=== PATIENT | male | born 1940 | race Caucasian/White ===

== ENCOUNTER 2017-01-16 08:16 | Inpatient (IN) | payer MEDICARE ==
[~2017-01-16] VITALS: Ht 177.8 cm; Wt 90.9 kg
[~2017-01-16 08:16] MED LIST: ALBUTEROL S2.5 MG/.5 IN; ALEVE220 M1 PO; ANCEF IJ; ASPIRIN325 MG PO; CIPROFLOXACN500 MG PO; DONEPEZIL10 MG PO; DUONEB IN; LAMICTAL25 M2 PO; LEVAQUIN750 MG PO; LIPITOR20 MG PO; LOPRESSOR25 MG PO; LOPRESSOR50 M1 PO; LORTAB 7.57.5 MG PO; MEMANTINE HCL10 MG PO; MULTIVITAMI1 PO; MULTIVITAMI9 PO; NITROSTAT0.4 MG PO; NORVASC OR; NORVASC2.5 MG PO; PREDNISONE10 MG PO; PROBIOTIC1 TAB PO; TERAZOSIN5 MG PO
[2017-01-16 08:52] LABS: HEMATOCRIT 44.6 % (39.0-50.0); HEMOGLOBIN 14.8 g/dl (14.0-18.0); IMMATURE GRANULOCYTES 0.3 % (0.0-1.0); MEAN CELL VOLUME 98.7 fL CALC (80.0-100.0); MEAN CORPUSCULAR HGB 32.7 pG CALC (26.0-32.0); MEAN CORPUSCULAR HGB CONC 33.2 g/L CALC (32.0-36.0); NEUT# 5.33 thou/uL (1.82-7.42); RED BLOOD COUNT 4.52 mill/uL (4.70-6.10); RED CELL DISTRI WIDTH 13.8 % (11.5-15.5)
[2017-01-16 09:04] LABS: ALBUMIN 4.2 g/dL (3.2-5.0); ALKALINE PHOSPHATASE 114 u/l (38-126); ANION GAP 15 (6-22 (CALC)); BILIRUBIN, TOTAL 0.8 mg/dL (0.0-1.4); BUN 14 mg/dL (8-23); BUN/CREATININE RATIO 15 (12-20 (CALC)); CALCIUM 9.4 mg/dL (8.4-10.2); CARBON DIOXIDE 29 mmol/l (22-30); CHLORIDE 103 mmol/l (95-108); CREATININE 0.9 mg/dL (0.7-1.3); GFR > 60 ML/MIN (>=60 (CALC)); GFR FOR AFR.AMER. > 60 ML/MIN (>=60 (CALC)); GLUCOSE 98 mg/dL (82-115); POTASSIUM 4.1 mmol/l (3.5-5.1); SGOT/AST 28 u/l (19-48); SGPT/ALT 25 u/l (11-66); SODIUM 143 mmol/l (137-146); TOTAL PROTEIN 7.6 g/dL (6.3-8.2)
[2017-01-16 09:15] LABS: MYOGLOBIN 102 ng/mL (0 - 121)
[2017-01-16 13:30] VITALS: BP 182/94
[2017-01-16 16:00] VITALS: BP 180/85
[2017-01-16 20:15] VITALS: BP 170/94
[2017-01-17 02:18] VITALS: BP 160/98
[2017-01-17 05:40] VITALS: BP 162/80
[2017-01-17 05:56] LABS: HEMATOCRIT 47.9 % (39.0-50.0); IMMATURE GRANULOCYTES 1.1 % (0.0-1.0); MEAN CELL VOLUME 97.8 fL CALC (80.0-100.0); MEAN CORPUSCULAR HGB 32.7 pG CALC (26.0-32.0); MEAN CORPUSCULAR HGB CONC 33.4 g/L CALC (32.0-36.0); NEUT# 8.61 thou/uL (1.82-7.42); RED BLOOD COUNT 4.9 mill/uL (4.70-6.10); RED CELL DISTRI WIDTH 13.6 % (11.5-15.5)
[2017-01-17 06:14] LABS: ANION GAP 15 (6-22 (CALC)); BUN 18 mg/dL (8-23); BUN/CREATININE RATIO 22 (12-20 (CALC)); CALCIUM 9.7 mg/dL (8.4-10.2); CARBON DIOXIDE 27 mmol/l (22-30); CHLORIDE 103 mmol/l (95-108); CREATININE 0.8 mg/dL (0.7-1.3); GFR > 60 ML/MIN (>=60 (CALC)); GFR FOR AFR.AMER. > 60 ML/MIN (>=60 (CALC)); GLUCOSE 131 mg/dL (82-115); POTASSIUM 4.3 mmol/l (3.5-5.1); SODIUM 141 mmol/l (137-146)
[2017-01-17 08:33] VITALS: BP 143/83
[2017-01-17 12:05] VITALS: BP 141/93
[2017-01-17 16:03] VITALS: BP 150/81
[2017-01-17 21:09] VITALS: BP 141/85
[2017-01-18 00:30] VITALS: BP 158/91
[2017-01-18 04:00] VITALS: BP 152/84
[2017-01-18 06:00] LABS: HEMATOCRIT 46.5 % (39.0-50.0); HEMOGLOBIN 15.4 g/dl (14.0-18.0); IMMATURE GRANULOCYTES 0.6 % (0.0-1.0); MEAN CELL VOLUME 97.9 fL CALC (80.0-100.0); MEAN CORPUSCULAR HGB 32.4 pG CALC (26.0-32.0); MEAN CORPUSCULAR HGB CONC 33.1 g/L CALC (32.0-36.0); NEUT# 10.24 thou/uL (1.82-7.42); RED BLOOD COUNT 4.75 mill/uL (4.70-6.10)
[2017-01-18 06:12] LABS: ANION GAP 14 (6-22 (CALC)); BUN 27 mg/dL (8-23); BUN/CREATININE RATIO 28 (12-20 (CALC)); CALCIUM 9.5 mg/dL (8.4-10.2); CARBON DIOXIDE 28 mmol/l (22-30); CHLORIDE 104 mmol/l (95-108); GFR > 60 ML/MIN (>=60 (CALC)); GFR FOR AFR.AMER. > 60 ML/MIN (>=60 (CALC)); GLUCOSE 120 mg/dL (82-115); POTASSIUM 4.4 mmol/l (3.5-5.1); SODIUM 141 mmol/l (137-146)
[2017-01-18 08:21] VITALS: BP 167/88
[2017-01-18 09:05] VITALS: BP 167/88
[2017-01-18] MEDS ORDERED: PREDNISONE10 MG PO (12:34)
[2017-01-18] MEDS ORDERED: ADLT ASA LOW81 MG PO (12:34)
[2017-01-18] MEDS ORDERED: LEVAQUIN750 MG PO (12:34)
== END 2017-01-18 13:20 | disposition home or self-care (01) | DRG 190 ==
LOC: ENPENDDIS → ED 08:16 → ED-I 10:03 → ED 10:21 → MS2 10:22
PROVIDERS: Emergency Medicine; ADMIT Internal Medicine; ATTEND Internal Medicine
DX: J44.0 Chronic obstructive pulmonary disease with (acute) lower respiratory infection (principal); J96.21 Acute and chronic respiratory failure with hypoxia; J18.9 Pneumonia, unspecified organism; J96.22 Acute and chronic respiratory failure with hypercapnia; Z99.81 Dependence on supplemental oxygen; J44.1 Chronic obstructive pulmonary disease with (acute) exacerbation; I10 Essential (primary) hypertension; I25.2 Old myocardial infarction; F17.210 Nicotine dependence, cigarettes, uncomplicated; I25.10 Atherosclerotic heart disease of native coronary artery without angina pectoris; E78.5 Hyperlipidemia, unspecified; Z86.711 Personal history of pulmonary embolism; Z95.5 Presence of coronary angioplasty implant and graft; Z87.01 Personal history of pneumonia (recurrent)
CPT/HCPCS: J1650

== ENCOUNTER 2017-10-06 15:41 | Observation (INO) | payer MEDICARE ==
[~2017-10-06] VITALS: Ht 177.8 cm; Wt 89.8 kg
[~2017-10-06 15:41] MED LIST changes: +ADLT ASA LOW81 MG PO
--- NOTE | 2017-10-06 15:41 | NUR ---
TO ROOM 10. AT SIDE
[2017-10-06 16:09] LABS: HEMATOCRIT 41.9 % (39.0-50.0); HEMOGLOBIN 13.9 g/dl (14.0-18.0); IMMATURE GRANULOCYTES 0.2 % (0.0-1.0); MEAN CELL VOLUME 97.9 fL CALC (80.0-100.0); MEAN CORPUSCULAR HGB 32.5 pG CALC (26.0-32.0); MEAN CORPUSCULAR HGB CONC 33.2 g/L CALC (32.0-36.0); NEUT# 5.9 thou/uL (1.82-7.42); RED BLOOD COUNT 4.28 mill/uL (4.70-6.10); RED CELL DISTRI WIDTH 13.3 % (11.5-15.5)
[2017-10-06 16:29] LABS: ANION GAP 15 (6-22 (CALC)); BUN 15 mg/dL (8-23); BUN/CREATININE RATIO 15 (12-20 (CALC)); CARBON DIOXIDE 29 mmol/l (22-30); CHLORIDE 107 mmol/l (95-108); GFR > 60 ML/MIN (>=60 (CALC)); GFR FOR AFR.AMER. > 60 ML/MIN (>=60 (CALC)); POTASSIUM 4.2 mmol/l (3.5-5.1); SODIUM 147 mmol/l (137-146)
--- NOTE | 2017-10-06 16:30 | NUR ---
PT ADVISED OF WAIT TIME FOR LAB RESULTS. NO C/O PAIN. VSS. CALL LIGHT WITHIN REACH.
--- NOTE | 2017-10-06 17:35 | NUR ---
PT MAEW. REPOSITIONS SELF. OCCASIONAL COUGH, VSS. IV SITE HEALTHY. SKIN WARM AND DRY. RA RESP EVEN AND UNLABORED. NO C/O PAIN.
[2017-10-06 17:52] LABS: INFLUENZA A NONE DETECTED (NONE DETECT); INFLUENZA B NONE DETECTED (NONE DETECT)
--- NOTE | 2017-10-06 18:30 | NUR ---
PT PLACED ON TELEMETRY. AWARE OF ADMIT TO ROOM 290
--- NOTE | 2017-10-06 19:03 | NUR ---
REPORT PROVIDED TO RADHA ABARCA. PT TO [facility] ON TELEMETRY, IV SITE HEALTHY. NO C/O PAIN SINCE ARRIVAL. VSS.
[2017-10-06 19:10] VITALS: BP 186/95
--- NOTE | 2017-10-06 20:00 | NUR ---
1912-FROM ER TO [facility] VIA STRETCHER, LABORATORY VETERINARIAN, ON ROOM AIR, ACOMPANIED BY SHYLA POE RN. PT AMBULATED TO BED WITH STEADY GAIT NOTED, DENIES PAIN AT THIS TIME, RESP ARE EVEN AND UNLABORED, WILL CHECK VSS, DENIES USING ASSISTIVE AMBULATORY DEVICES AT HOME. NOTED SOME FACIAL GRIMACE, ASKED PT AGAIN "DO YOU HAVE ANY CHEST PAIN OR DISCOMFORT." PT DENIES AT THIS TIME. 1999-PT BP ELEVATED, C/O CHEST PAIN, [id number], DENIES N/V, PLACE ON 2LPM O2 VIA NC, FLUSHED FACE NOTED. 2009-RT IN ROOM FOR EKG 2014-ADMINISTRATED SUBLINGUAL NITROGLYCERIN, FIRST DOSE. 2019-CONTINUE HAVING CHEST PAIN, SUBLINGUAL NITROGLYCERIN GIVEN, SECOND DOSE. 2024-CONTINUES HAVING CHEST PAIN, THIRD DOSE OF SUBLINGUAL NITROGLYCERIN GIVEN. 2029-COCOA ROASTER IN PT ROOM DRAWING TROPONIN. PT RATES CHEST PAIN AT 1/10, STATES IS ALMOST GONE. WILL NOTIFY DR. WEI. PT RESP ARE EVEN AND UNLABORED, NO DISTRESS NOTED AT THIS TIME, VSS, AFEBRILE, REMAINS AT BEDSIDE.
[2017-10-06 20:10] VITALS: BP 190/100
--- NOTE | 2017-10-06 21:20 | NUR ---
DR. WEI NOTIFIED ABOUT PT STATUS, EKG, TROPONIN RESULTS, MEDS GIVEN. WAITING FOR MORPHINE AND NITRO PATCH TO BE PROFILE BY PHARMACY, PT VSS, AFEBRILE, ON 2LPM NC, NO DISTRESS NOTED RESP ARE EVEN AND UNLABORED, RATES CHEST PAIN AT 1/10. WILL MONITOR CLOSELY. INTERMITTENT PRODUCTIVE COUGH W/SOME GREEN TENACIOUS SPUTUM NOTED.
--- NOTE | 2017-10-06 22:18 | NUR ---
ADMINISTERED A NITRO OINTMENT PATCH AT THIS TIME, PT RATES CHEST PAIN AT 1/10, NO DISTRESS NOTED, ON 2LPM VIA NC, RESP ARE EVEN AND UNLABORED, VSS AT THIS TIME, AT BEDSIDE, WILL MONITOR CLOSELY.
--- NOTE | 2017-10-07 00:25 | NUR ---
PT RESTING IN BED WITH EYES CLOSED, PT IS HARD TO HEAR, AROUSES WITH PHYSICAL STIMULI, DENIES CHEST PAIN AT THIS TIME, NO DISTRES NOTED AT THIS TIME ON 2LPM VIA NC, AT BEDSIDE, VSS, AFEBRILE, WILL CONTINUE TO MONITOR, CALL DELGADO IS AT REACH.
[2017-10-07 01:12] VITALS: BP 117/74
--- NOTE | 2017-10-07 01:54 | NUR ---
NOTIFIED DR. WEI ABOUT MIDNIGHT TROP RESULTS AND PT C/O CHEST PAIN, RATES IT AT 1/10, NO DISTRESS NOTED, RESP ARE EVEN AND UNLABORED ON 2LPM VIA NC, VSS, WILL CONTINUE TO MONITOR CLOSELY.
--- NOTE | 2017-10-07 03:31 | NUR ---
PT CONTINUE RATING CHEST PAIN AT /, STATES "IT COMES AND GOES, IT IS ONLY ON LEFT CHEST." NO DISTRESS NOTED, RESP ARE EVEN AND UNLABORED, NONDIAPHORECTIC, SOME COUGH NOTED, PT STATES "I FEEL CONGESTED." REMAINS AT BEDSIDE. FREQUENTLY ROUNDS MADE.
[2017-10-07 03:43] VITALS: BP 107/68
--- NOTE | 2017-10-07 06:32 | NUR ---
PT DENIES ANY CHEST PAIN AT THIS TIME STATES "NO CHEST PAIN NOW." AT BEDSIDE, NO S/S OF DISTRESS, RESP ARE EVEN AND UNLABORED ON ROOM AIR. ENCOURAGED TO CALL IF NEEEDED.
[2017-10-07 06:36] LABS: CHOLESTEROL HDL RATIO 3.3 (<4.4 (CALC))
--- NOTE | 2017-10-07 07:55 | NUR ---
CALLED DR. VASQUEZ'S OFFICE AND LEFT MESSAGE AT
[2017-10-07 08:25] VITALS: BP 148/85
--- NOTE | 2017-10-07 08:25 | NUR ---
AT 0715 PT C/O MIDSTERNAL CHEST PAIN AFTER TAKING IN WATER. THEN GRANDDAUGHTER CAME IN AND BROUGHT PT A SANDWICH. STATED "WHEN I ATE A FEW BITES OF SANDWICH LAST NIGHT AND THEN THIS AM THEN THE PAIN STARTS.".ASSESSMENT THEN COMPLETED: AND NO DISTRESS NOTED. STATING "ITS ALL GONE". BREATH SOUNDS ARE CLEAR,BILATERALLY, HR IS REG,PULSES ARE STRONG X4. ABD IS SOFT WITH ACTIVE BS. TELE MONITOR IN PLACE.
[2017-10-07 11:45] VITALS: BP 140/75
--- NOTE | 2017-10-07 12:14 | NUR ---
PT IS RELAXING IN BED FAMILY IN THE ROOM. IV SITE IS FREE FROM REDNESS OR EDEMA. IN TO VISIT WITH PT. CONTINUE TO OBSERVE AND MONIOTR.
[2017-10-07 14:54] VITALS: BP 140/75
--- NOTE | 2017-10-07 16:00 | NUR ---
PT IS RELAXING AND VISITING IWTH FAMILY. NO DISTRESS NOTED. IV SITE IS FREE FROM REDNESS OR EDEMA. TELE MONITOR INPLACE.
[2017-10-07] MEDS ORDERED: MEDDOSEPAK PO (17:36)
[2017-10-07] MEDS ORDERED: LOPRESSOR25 MG PO (17:36)
[2017-10-07] MEDS ORDERED: DOXYCYCL HYC100 MG PO (17:36)
--- NOTE | 2017-10-07 17:52 | NUR ---
IV SITE WILL BE REMOVED FOR DISCHARGE,. FAMILY IN THE ROOM NOW.
--- NOTE | 2017-10-07 18:14 | NUR ---
DISCHARGE INSTRUCTIONS GIVEN AND VERBALIZED UNDERSTANDING. IV SITE DISCONTINEUD CATHETER INTACT. NO REDNESS OR EDEMA. TELE MONITOR TAKEN OFF. Discharge instructions given. Patient verbalizes understanding of same. Discharged in stable condition via Wheelchair to Home with family. All belongings sent with pt.
== END 2017-10-07 18:12 | disposition home or self-care (01) ==
LOC: ED 15:41 → ED-I 17:23 → ED 17:50 → MS2 17:51
PROVIDERS: Family Medicine; ADMIT Internal Medicine; ATTEND Internal Medicine
DX: R07.89 Other chest pain (principal); J44.1 Chronic obstructive pulmonary disease with (acute) exacerbation; I25.10 Atherosclerotic heart disease of native coronary artery without angina pectoris; I10 Essential (primary) hypertension; I25.2 Old myocardial infarction; E78.5 Hyperlipidemia, unspecified; R91.1 Solitary pulmonary nodule; Z86.711 Personal history of pulmonary embolism; Z95.5 Presence of coronary angioplasty implant and graft; Z95.828 Presence of other vascular implants and grafts; Z99.81 Dependence on supplemental oxygen; Z87.11 Personal history of peptic ulcer disease; Z87.891 Personal history of nicotine dependence
CPT/HCPCS: Q9967

== ENCOUNTER 2017-11-09 11:04 | Emergency (ER) | payer MEDICARE ==
[~2017-11-09] VITALS: Ht 177.8 cm; Wt 90.0 kg
[~2017-11-09 11:04] MED LIST changes: +DOXYCYCL HYC100 MG PO; +MEDDOSEPAK PO
[2017-11-09 11:33] LABS: HEMATOCRIT 43.9 % (39.0-50.0); HEMOGLOBIN 14.5 g/dl (14.0-18.0); IMMATURE GRANULOCYTES 0.7 % (0.0-1.0); MEAN CELL VOLUME 97.3 fL CALC (80.0-100.0); MEAN CORPUSCULAR HGB 32.2 pG CALC (26.0-32.0); NEUT# 21.44 thou/uL (1.82-7.42); RED BLOOD COUNT 4.51 mill/uL (4.70-6.10)
[2017-11-09 11:54] LABS: ACT PARTIAL THROMBO TIME 30.3 SECONDS (20.0-32.5); INTERNATIONAL NORMALIZED RATIO 1.1 RATIO (0.7-1.3); PROTHROMBIN TIME 11.8 SECONDS (9.0-12.5)
[2017-11-09 11:55] LABS: ALBUMIN 3.5 g/dL (3.2-5.0); BILIRUBIN, TOTAL 0.9 mg/dL (0.0-1.4); POTASSIUM 3.7 mmol/l (3.5-5.1)
[2017-11-09 11:56] LABS: CREATININE 2.2 mg/dL (0.7-1.3)
[2017-11-09 12:45] VITALS: BP 89/53
== END 2017-11-09 12:14 | disposition short-term general hospital (02) ==
LOC: ED 11:04
PROVIDERS: Emergency Medicine
DX: I21.09 ST elevation (STEMI) myocardial infarction involving other coronary artery of anterior wall (principal); I95.9 Hypotension, unspecified; I10 Essential (primary) hypertension; I25.2 Old myocardial infarction; Z86.711 Personal history of pulmonary embolism; R06.02 Shortness of breath; R07.9 Chest pain, unspecified; F03.90 Unspecified dementia, unspecified severity, without behavioral disturbance, psychotic disturbance, mood disturbance, and anxiety

== ENCOUNTER 2017-11-21 20:53 | Emergency (ER) | payer MEDICARE ==
[~2017-11-21] VITALS: Ht 177.8 cm; Wt 90.4 kg
[2017-11-21] MEDS ORDERED: ASPIRIN81 MG PO (21:23)
[2017-11-21] MEDS ORDERED: BRILINTA90 MG PO (21:24)
[2017-11-21] MEDS ORDERED: SPIRONOLACTONE25 MG PO (21:25)
[2017-11-21] MEDS ORDERED: SPIRONOLACT25 MG PO (21:26)
[2017-11-21] MEDS ORDERED: LASIX 20 MG TAB20 MG PO (21:35)
[2017-11-21 21:37] LABS: HEMATOCRIT 39.6 % (39.0-50.0); IMMATURE GRANULOCYTES 0.5 % (0.0-1.0); MEAN CELL VOLUME 100.5 fL CALC (80.0-100.0); MEAN CORPUSCULAR HGB 31.7 pG CALC (26.0-32.0); MEAN CORPUSCULAR HGB CONC 31.6 g/L CALC (32.0-36.0); NEUT# 6.81 thou/uL (1.82-7.42); RED BLOOD COUNT 3.94 mill/uL (4.70-6.10); RED CELL DISTRI WIDTH 14.3 % (11.5-15.5)
[2017-11-21 21:39] LABS: HEMOGLOBIN 12.5 g/dl (14.0-18.0)
[2017-11-21 21:51] LABS: ALBUMIN 3.6 g/dL (3.2-5.0); BILIRUBIN, TOTAL 0.4 mg/dL (0.0-1.4); CREATININE 1.8 mg/dL (0.7-1.3); POTASSIUM 4.6 mmol/l (3.5-5.1); TOTAL PROTEIN 6.2 g/dL (6.3-8.2)
[2017-11-21 22:29] LABS: ACT PARTIAL THROMBO TIME 27.1 SECONDS (20.0-32.5); INTERNATIONAL NORMALIZED RATIO 1.1 RATIO (0.7-1.3); PROTHROMBIN TIME 11.8 SECONDS (9.0-12.5)
[2017-11-22 01:11] VITALS: BP 120/84
== END 2017-11-22 01:12 | disposition short-term general hospital (02) ==
LOC: ED 20:53
PROVIDERS: Emergency Medicine
DX: I21.4 Non-ST elevation (NSTEMI) myocardial infarction (principal); J44.0 Chronic obstructive pulmonary disease with (acute) lower respiratory infection; J18.9 Pneumonia, unspecified organism; I11.9 Hypertensive heart disease without heart failure; I25.10 Atherosclerotic heart disease of native coronary artery without angina pectoris; I25.2 Old myocardial infarction; F03.90 Unspecified dementia, unspecified severity, without behavioral disturbance, psychotic disturbance, mood disturbance, and anxiety; Z95.5 Presence of coronary angioplasty implant and graft; Z95.0 Presence of cardiac pacemaker
CPT/HCPCS: J1650

== ENCOUNTER 2017-12-02 16:47 | Inpatient (IN) | payer MEDICARE ==
[~2017-12-02] VITALS: Ht 177.8 cm; Wt 86.0 kg
[~2017-12-02 16:47] MED LIST changes: -ALBUTEROL S2.5 MG/.5 IN; +ASPIRIN81 MG PO; +BRILINTA90 MG PO; +LASIX 20 MG TAB20 MG PO; +PROAIR HFA108 MCG/AC IN; +SPIRONOLACT25 MG PO; +SPIRONOLACTONE25 MG PO
[2017-12-02 17:00] VITALS: BP 106/74
[2017-12-02 18:11] LABS: HEMATOCRIT 40.5 % (39.0-50.0); HEMOGLOBIN 12.6 g/dl (14.0-18.0); IMMATURE GRANULOCYTES 0.4 % (0.0-1.0); MEAN CORPUSCULAR HGB 31.7 pG CALC (26.0-32.0); MEAN CORPUSCULAR HGB CONC 31.1 g/L CALC (32.0-36.0); NEUT# 5.09 thou/uL (1.82-7.42); RED BLOOD COUNT 3.97 mill/uL (4.70-6.10); RED CELL DISTRI WIDTH 15.5 % (11.5-15.5)
[2017-12-02 18:30] LABS: ALBUMIN 3.5 g/dL (3.2-5.0); BILIRUBIN, TOTAL 0.6 mg/dL (0.0-1.4); CREATININE 1.4 mg/dL (0.7-1.3); POTASSIUM 4.6 mmol/l (3.5-5.1); TOTAL PROTEIN 6.4 g/dL (6.3-8.2)
[2017-12-02 19:00] VITALS: BP 115/74
[2017-12-02] MEDS ORDERED: BRILINTA90 MG PO (20:10)
[2017-12-02] MEDS ORDERED: COREG3.125 MG PO (20:11)
[2017-12-02] MEDS ORDERED: LIPITOR80 M1 PO (20:11)
[2017-12-02 22:00] VITALS: BP 110/72
[2017-12-02 23:30] VITALS: BP 102/73
[2017-12-02 23:36] LABS: URINE BILIRUBIN - DIPSTICK NEGATIVE (NEGATIVE); URINE BLOOD DIPSTICK NEGATIVE (NEGATIVE); URINE COLOR YELLOW; URINE GLUCOSE - DIPSTICK NEGATIVE (NEGATIVE); URINE KETONE NEGATIVE (NEGATIVE); URINE LEUK ESTERASE NEGATIVE (NEGATIVE); URINE NITRITE - DIPSTICK NEGATIVE (Negative); URINE PH 5.5 (4.5-8.0); URINE PROTEIN - DIPSTICK NEGATIVE (NEG-TRACE); URINE SPECIFIC GRAVITY 1.015; URINE UROBILINOGEN - DIPSTICK 0.2 E.U./dL (0.2)
[2017-12-02 23:38] LABS: URINE CLARITY CLEAR
[2017-12-02 23:45] VITALS: BP 102/76
[2017-12-03] VITALS (20 sets, daily range): BP systolic 86–119; BP diastolic 57–82
[2017-12-03 05:57] LABS: HEMATOCRIT 39.4 % (39.0-50.0); HEMOGLOBIN 12.3 g/dl (14.0-18.0); MEAN CELL VOLUME 101.8 fL CALC (80.0-100.0); MEAN CORPUSCULAR HGB 31.8 pG CALC (26.0-32.0); MEAN CORPUSCULAR HGB CONC 31.2 g/L CALC (32.0-36.0); RED BLOOD COUNT 3.87 mill/uL (4.70-6.10); RED CELL DISTRI WIDTH 15.6 % (11.5-15.5)
[2017-12-03 06:38] LABS: CREATININE 1.4 mg/dL (0.7-1.3); POTASSIUM 4.4 mmol/l (3.5-5.1)
[2017-12-03] MEDS ORDERED: TRIAMCINOLON0.13 TOP (11:17)
[2017-12-03] MEDS ORDERED: MULTI VIT PO (11:17)
[2017-12-03] MEDS ORDERED: FLORASTOR250 M1 PO (11:18)
[2017-12-03] MEDS ORDERED: TYLENOL325 MG PO (11:18)
[2017-12-03] MEDS ORDERED: DOCUSATE CAL240 MG PO (11:19)
[2017-12-04] VITALS (14 sets, daily range): BP systolic 81–126; BP diastolic 57–86
[2017-12-04 04:35] LABS: HEMATOCRIT 39.1 % (39.0-50.0); HEMOGLOBIN 12.5 g/dl (14.0-18.0); MEAN CELL VOLUME 100.5 fL CALC (80.0-100.0); MEAN CORPUSCULAR HGB 32.1 pG CALC (26.0-32.0); RED BLOOD COUNT 3.89 mill/uL (4.70-6.10); RED CELL DISTRI WIDTH 15.2 % (11.5-15.5)
[2017-12-04 04:51] LABS: MAGNESIUM 1.8 mg/dL (1.6-2.3)
[2017-12-04 05:29] LABS: CREATININE 1.4 mg/dL (0.7-1.3); POTASSIUM 4.1 mmol/l (3.5-5.1)
[2017-12-04 15:32] LABS: ALBUMIN 3.7 g/dL (3.2-5.0); BILIRUBIN, TOTAL 0.7 mg/dL (0.0-1.4); CREATININE 1.6 mg/dL (0.7-1.3); POTASSIUM 4.5 mmol/l (3.5-5.1); TOTAL PROTEIN 6.6 g/dL (6.3-8.2)
[2017-12-05] VITALS (16 sets, daily range): BP systolic 80–100; BP diastolic 56–93
[2017-12-06] VITALS (18 sets, daily range): BP systolic 76–112; BP diastolic 58–83
[2017-12-06 18:20] LABS: HEMATOCRIT 40.2 % (39.0-50.0); HEMOGLOBIN 12.6 g/dl (14.0-18.0); IMMATURE GRANULOCYTES 0.7 % (0.0-1.0); MEAN CELL VOLUME 101.5 fL CALC (80.0-100.0); MEAN CORPUSCULAR HGB 31.8 pG CALC (26.0-32.0); MEAN CORPUSCULAR HGB CONC 31.3 g/L CALC (32.0-36.0); NEUT# 7.62 thou/uL (1.82-7.42); RED BLOOD COUNT 3.96 mill/uL (4.70-6.10); RED CELL DISTRI WIDTH 15.3 % (11.5-15.5)
[2017-12-06 19:50] LABS: ALBUMIN 3.4 g/dL (3.2-5.0); BILIRUBIN, TOTAL 0.5 mg/dL (0.0-1.4); CREATININE 1.7 mg/dL (0.7-1.3); POTASSIUM 4.5 mmol/l (3.5-5.1); TOTAL PROTEIN 6.1 g/dL (6.3-8.2)
[2017-12-07] VITALS (17 sets, daily range): BP systolic 77–109; BP diastolic 59–77
[2017-12-07] MEDS ORDERED: LASIX 40 MG TAB40 MG PO (18:16)
[2017-12-07] MEDS ORDERED: NITRO-DUR0.4 MG/HR TD (18:16)
[2017-12-07] MEDS ORDERED: PREDNISONE10 MG PO (18:16)
[2017-12-07] MEDS ORDERED: AUGMENTIN875TAB PO (18:16)
[2017-12-07] MEDS ORDERED: FLORASTOR250 M1 PO (18:16)
== END 2017-12-07 19:05 | DRG 280 ==
LOC: MS2 16:47 → ICU 16:47
PROVIDERS: Hospitalist; Nurse Practitioner Family; ADMIT Internal Medicine; ATTEND Internal Medicine
PROC: 0T9B70Z Drainage of Bladder with Drainage Device, Via Natural or Artificial Opening (ICD-10-PCS; principal; 2017-12-02)
DX: I13.0 Hypertensive heart and chronic kidney disease with heart failure and stage 1 through stage 4 chronic kidney disease, or unspecified chronic kidney disease (principal); I50.23 Acute on chronic systolic (congestive) heart failure; I21.3 ST elevation (STEMI) myocardial infarction of unspecified site; J96.22 Acute and chronic respiratory failure with hypercapnia; N17.9 Acute kidney failure, unspecified; J18.9 Pneumonia, unspecified organism; F03.91 Unspecified dementia, unspecified severity, with behavioral disturbance; Z86.74 Personal history of sudden cardiac arrest; N18.3 Chronic kidney disease, stage 3 (moderate); J44.1 Chronic obstructive pulmonary disease with (acute) exacerbation; J44.0 Chronic obstructive pulmonary disease with (acute) lower respiratory infection; E78.5 Hyperlipidemia, unspecified; Z95.5 Presence of coronary angioplasty implant and graft; F17.210 Nicotine dependence, cigarettes, uncomplicated; Z86.711 Personal history of pulmonary embolism; I25.5 Ischemic cardiomyopathy; Z95.0 Presence of cardiac pacemaker; I25.2 Old myocardial infarction; Z95.828 Presence of other vascular implants and grafts; Z86.010 Personal history of colon polyps; Z87.11 Personal history of peptic ulcer disease; R91.1 Solitary pulmonary nodule; Y95 Nosocomial condition; I25.118 Atherosclerotic heart disease of native coronary artery with other forms of angina pectoris
CPT/HCPCS: J1644

== ENCOUNTER → 2018-06-04 | Outpatient (REF) | payer MEDICARE ==
[~2018-06-04] MED LIST changes: +AUGMENTIN875TAB PO; +COREG3.125 MG PO; +DOCUSATE CAL240 MG PO; +FLORASTOR250 M1 PO; +LASIX 40 MG TAB40 MG PO; +LIPITOR80 M1 PO; +MULTI VIT PO; +NITRO-DUR0.4 MG/HR TD; +TRIAMCINOLON0.13 TOP; +TYLENOL325 MG PO
[2018-06-04 10:44] LABS: ALBUMIN 3.9 g/dL (3.2-5.0); BILIRUBIN, TOTAL 0.6 mg/dL (0.0-1.4); CREATININE 1.7 mg/dL (0.7-1.3); POTASSIUM 4.3 mmol/l (3.5-5.1); TOTAL PROTEIN 6.8 g/dL (6.3-8.2)
== END | disposition home or self-care (01) ==
LOC: LABSPEC 09:37
PROVIDERS: ATTEND Internal Medicine
DX: I50.9 Heart failure, unspecified (principal)

== ENCOUNTER 2018-07-18 04:25 | Emergency (ER) | payer MEDICARE ==
[~2018-07-18] VITALS: Ht 177.8 cm; Wt 84.0 kg
[2018-07-18] MEDS ORDERED: METOLAZONE5 MG PO (05:03)
[2018-07-18] MEDS ORDERED: PLAVIX75 MG PO (05:04)
[2018-07-18] MEDS ORDERED: PRADAXA75 MG PO (05:05)
[2018-07-18] MEDS ORDERED: BUMEX1 M1 PO (05:07)
[2018-07-18] MEDS ORDERED: ALDACTONE25 MG PO (05:08)
[2018-07-18 05:09] LABS: HEMATOCRIT 35.5 % (39.0-50.0); HEMOGLOBIN 11.2 g/dl (14.0-18.0); IMMATURE GRANULOCYTES 0.3 % (0.0-5.0); MEAN CELL VOLUME 95.2 fL CALC (80.0-100.0); MEAN CORPUSCULAR HGB CONC 31.5 g/L CALC (32.0-36.0); NEUT# 4.11 thou/uL (1.82-7.42); RED BLOOD COUNT 3.73 mill/uL (4.70-6.10); RED CELL DISTRI WIDTH 17.5 % (11.5-15.5)
[2018-07-18] MEDS ORDERED: K-DUR/KLOR-CON20 MEQ PO (05:09)
[2018-07-18] MEDS ORDERED: DUONEB IN (05:11)
[2018-07-18 05:21] LABS: ALBUMIN 3.8 g/dL (3.2-5.0); BILIRUBIN, TOTAL 0.8 mg/dL (0.0-1.4); CREATININE 1.6 mg/dL (0.7-1.3); TOTAL PROTEIN 6.9 g/dL (6.3-8.2)
[2018-07-18 10:18] VITALS: BP 99/61
== END 2018-07-18 10:19 ==
LOC: ED 04:25
PROVIDERS: Emergency Medicine
DX: K40.30 Unilateral inguinal hernia, with obstruction, without gangrene, not specified as recurrent (principal); R07.9 Chest pain, unspecified; I10 Essential (primary) hypertension; J44.9 Chronic obstructive pulmonary disease, unspecified; I25.2 Old myocardial infarction; F03.90 Unspecified dementia, unspecified severity, without behavioral disturbance, psychotic disturbance, mood disturbance, and anxiety; Z95.0 Presence of cardiac pacemaker; Z86.711 Personal history of pulmonary embolism

== ENCOUNTER 2018-09-01 14:03 | Outpatient (RCR) | payer MEDICARE ==
[~2018-09-01 14:03] MED LIST changes: +ALDACTONE25 MG PO; +BUMEX1 M1 PO; +K-DUR/KLOR-CON20 MEQ PO; +METOLAZONE5 MG PO; +PLAVIX75 MG PO; +PRADAXA75 MG PO
== END 2018-09-01 16:00 | disposition home or self-care (01) ==
LOC: OPWC 14:03
PROVIDERS: ATTEND Surgery
DX: I73.9 Peripheral vascular disease, unspecified (principal); L03.116 Cellulitis of left lower limb; L03.115 Cellulitis of right lower limb; L97.821 Non-pressure chronic ulcer of other part of left lower leg limited to breakdown of skin

== ENCOUNTER → 2018-10-21 | Outpatient (REF) | payer MEDICARE ==
[2018-10-21 11:11] LABS: HEMATOCRIT 37.1 % (39.0-50.0); HEMOGLOBIN 11.5 g/dl (14.0-18.0); MEAN CELL VOLUME 96.9 fL CALC (80.0-100.0); RED BLOOD COUNT 3.83 mill/uL (4.70-6.10); RED CELL DISTRI WIDTH 16.6 % (11.5-15.5)
[2018-10-21 11:38] LABS: ALBUMIN 4.1 g/dL (3.2-5.0); BILIRUBIN, TOTAL 0.8 mg/dL (0.0-1.4); CREATININE 1.8 mg/dL (0.7-1.3); MAGNESIUM 2.1 mg/dL (1.6-2.3); POTASSIUM 4.2 mmol/l (3.5-5.1); TOTAL PROTEIN 7.2 g/dL (6.3-8.2)
== END | disposition home or self-care (01) ==
LOC: LAB 10:15
PROVIDERS: ATTEND Internal Medicine
DX: F03.90 Unspecified dementia, unspecified severity, without behavioral disturbance, psychotic disturbance, mood disturbance, and anxiety (principal); I50.22 Chronic systolic (congestive) heart failure; J44.9 Chronic obstructive pulmonary disease, unspecified; N18.3 Chronic kidney disease, stage 3 (moderate)

== ENCOUNTER → 2018-11-10 | Outpatient (REF) | payer MEDICARE ==
[2018-11-10 14:15] LABS: CREATININE 1.7 mg/dL (0.7-1.3); MAGNESIUM 2.2 mg/dL (1.6-2.3); POTASSIUM 3.4 mmol/l (3.5-5.1)
== END | disposition home or self-care (01) ==
LOC: LAB 12:21
PROVIDERS: ATTEND Internal Medicine
DX: I50.22 Chronic systolic (congestive) heart failure (principal); N18.3 Chronic kidney disease, stage 3 (moderate)

== ENCOUNTER 2019-01-08 22:31 | Inpatient (IN) | payer MEDICARE ==
[~2019-01-08] VITALS: Ht 175.3 cm; Wt 87.0 kg
--- NOTE | 2019-01-08 22:35 | NUR ---
PT WHEELED INTO ROOM 9 AND TRIAGED
--- NOTE | 2019-01-08 22:40 | NUR ---
PT HAS EXPRESSIVE APHASIA NOT NEW, PER RESIDUAL FROM PREVIOUS STROKE. PT ALSO HAS B/L LEG EDEMA WITH SHINY PINK SKIN TO LOWER CALVES. PER NOT NEW ONGOING PROBLEM
--- NOTE | 2019-01-08 23:20 | NUR ---
PT TO XRAY VIA WHEELCHAIR. URINE OBTAINED AND TYLENOL GIVEN.
[2019-01-08 23:29] LABS: HEMATOCRIT 41.7 % (39.0-50.0); HEMOGLOBIN 12.5 g/dl (14.0-18.0); IMMATURE GRANULOCYTES 0.6 % (0.0-5.0); MEAN CELL VOLUME 95.2 fL CALC (80.0-100.0); MEAN CORPUSCULAR HGB 28.5 pG CALC (26.0-32.0); NEUT# 9.78 thou/uL (1.82-7.42); RED BLOOD COUNT 4.38 mill/uL (4.70-6.10); RED CELL DISTRI WIDTH 16.2 % (11.5-15.5)
[2019-01-08 23:38] LABS: ALBUMIN 4.4 g/dL (3.2-5.0); CREATININE 1.6 mg/dL (0.7-1.3); POTASSIUM 4.4 mmol/l (3.5-5.1); TOTAL PROTEIN 7.9 g/dL (6.3-8.2)
[2019-01-08 23:44] LABS: URINE BILIRUBIN - DIPSTICK NEGATIVE (NEGATIVE); URINE BLOOD DIPSTICK TRACE-INTACT (NEGATIVE); URINE COLOR YELLOW; URINE GLUCOSE - DIPSTICK NEGATIVE (NEGATIVE); URINE KETONE NEGATIVE (NEGATIVE); URINE LEUK ESTERASE TRACE (NEGATIVE); URINE NITRITE - DIPSTICK NEGATIVE (Negative); URINE PROTEIN - DIPSTICK TRACE mg/dL (NEG-TRACE); URINE SPECIFIC GRAVITY 1.015; URINE UROBILINOGEN - DIPSTICK 0.2 E.U./dL (0.2)
[2019-01-09] MEDS ORDERED: PRADAXA150 MG PO (00:07)
[2019-01-09] MEDS ORDERED: TRELEGY ELLIPTA1 AER IN (00:09)
[2019-01-09] MEDS ORDERED: ASPIRIN81 MG PO (00:13)
[2019-01-09] MEDS ORDERED: EPLERENONE25 MG PO (00:13)
[2019-01-09] MEDS ORDERED: TYLENOL 500MG TAB PO (00:14)
--- NOTE | 2019-01-09 00:16 | NUR ---
TEMP WENT UP TO 102.8 DR VALLEJO INFORMED. INQUIRED ABOUT FLUIDS.
--- NOTE | 2019-01-09 01:10 | NUR ---
ROCEPHIN COMPLETED NO ADVERSE REACTION NOTED. PT DOES NOT HAVE HEAT RADIATING OFF HIM- RECHECK TEMP 101.
--- NOTE | 2019-01-09 01:32 | NUR ---
Admission Note Report Given to: RADHA GOMEZ. Transported by: Wheelchair X Stretcher Transported with: X Nurse Transporter X Patent IV X O2 Demand Inspector
[2019-01-09 01:40] VITALS: BP 116/70
--- NOTE | 2019-01-09 02:30 | NUR ---
PATIENT ADMITTED FROM ER VIA STETCHER WITH ER STAFF IN ATTENDANCE. PATIENT TRANSFERRED FROM STRETCHER TO BED. PATIENT IN ATTENDANCE. PATIENT IS AWAKE ALERT WITH EXPRESSIVE APHAISIA. IS ABLE TO HELP WITH ADMISSION PROCESS. PATIENT WITH EXTENSIVE HISTORY-SEE PMH IN ADMISSION PROCESS. O2 VIA NASAL CANNUAL IN PLACE AT 2LPM. SALINE LOCK TO RIGHT AC INTACT WITH GOOD BLOOD RETURN WHEN FLUSHED, TEMP IS DOWN TO 99.5 AT THIS TIME, PATIENT WITH COURSE BS LAUREN LUNG FEILDS. NON-PRODUCTIVE COUGH AT THIS TIME, ABD IS SOFT WITH BS+. LAST BM WAS 01/08. DENIES ANY DIFFICULTY WITH URINATION. ORIENTED TO ROOM AND SURROUNDINGS, INSTRUCTED ON USE OF NURSE CALL LIGHT SYSTEM. SAFETY PRECAUTIONS REINFORCED. CALL LIGHT IN REACH. WILL CONT TO MONITOR.
--- NOTE | 2019-01-09 04:15 | NUR ---
PATIENT AFEBRILE AT THIS TIME. APPEARS SLEEPING WITH HOB ELEVATED AND O2 VIA NASAL CANNULA INPLACE, RESTING ON RECLINER PROVIDED. CALL LIGHT IN REACH. WILL CONT TO MONITOR.
[2019-01-09 04:16] VITALS: BP 106/67
--- NOTE | 2019-01-09 06:10 | NUR ---
CALL TO DR WEI WITH TROP RESULTSFROM THIS MORNING-0.136 NO NEW ORDERS RECIEVED. STATES TO STAY ON [facility] EVAL THIS TODAY AND GET NEXT SCHEDULED TROP. WILL CONT TO MONITOR. PATIENT WITH NO C/O OF ANY CHEST PAIN.
[2019-01-09 08:04] VITALS: BP 100/70
--- NOTE | 2019-01-09 08:04 | NUR ---
PT RESTING IN BED WITH EYES CLOSED, NO SIGNS OF DISTRESS NOTED, RESP EVEN AND UNLABORED. RESPONDS TO VERBAL STIMULI PT HAS EXPRESSIVE APHASIA, AT BEDSIDE. DISCUSSED POC, VSS. ASSESSMENT COMPLETED. CALL LIGHT IN REACH,CONTINUE TO MONITOR.
--- NOTE | 2019-01-09 13:00 | NUR ---
PT SITTING IN RECLINER, C/O HEADACHE MEDICATED WITH TYLENOL. CALL LIGHT IN REACH,CONTINUE TO MONITOR. AT BEDSIDE.
--- NOTE | 2019-01-09 13:46 | NUR ---
DISCUSSED SOLUMEDROL, PT AGREES, AT BEDSIDE. ASKED SWITCHBOARD OPERATOR HELPER TO CHECK TOILET WHERE PT COUGHED UP BLOOD. NOTED BRIGHT RED BLOOD SPUTUM IN TOILET. CLIENT PROFESSIONAL NOTIFIED, CLIENT PROFESSIONAL TO DISCUSSED WITH ;AWAITING ORDERS. PT VOICES NO NEEDS OR COMPLAINTS, OR PAIN. PT STABLE. CALL LIGHT IN REACH,CONTINUE TO MONITOR.
--- NOTE | 2019-01-09 15:08 | NUR ---
PT TAKEN DOWN TO RADIOLOGY FOR CT VIA WHEELCHAIR ACCOMPANIED BY AUTOMOTIVE TIRE TESTER. PT STABLE, CONTINUE TO MONITOR.
[2019-01-09 16:54] VITALS: BP 94/60
[2019-01-09 19:10] VITALS: BP 101/66
--- NOTE | 2019-01-09 20:00 | NUR ---
PATIENT SITTING UP IN THE RECLINER AT THIS TIME WITH FAMILY AT BEDSIDE. PATIENT IS AWAKE ALERT STILL WITH EXPRESSIVE APHASIA. BREATHING IS IMPROVED FROM THIS MORNING. IV SITE TO RIGHT AC INTACT AND IS HEALTHY WITH GOOD BLOOD RETURN. FAMILY STATES THAT HE CONT TO HAVE BLOODY SPUTUM. INSTRUCTED FAMILY AND PATIENT TO ALLOW FAMILY TO SEE SPEC WHEN ABLE. VERBALIZES UNDERSTANDING. SAFETY PRECAUTIONS REINFORCED. CALL LIGHT IN REACH. WILL CONT TO [id number].
--- NOTE | 2019-01-09 21:00 | NUR ---
PATIENT REMAINS UP IN THE RECLINER WITH AT BESIDE-PATIENT IS RESTLESS AND SLIGHTLY AGITATED-MEDICATED WITH TYLENOL 650MG PO FOR COMFORT. REFUSING PATIENT TO HAVE SONATA-STATES THAT HE HAS "BAD REACTIONS" TO THOSE KIND OF MEDS. PATIENT WITH IV ANTIBIOTICS ORDERED VIA RIGHT AC SITE, SITE IS HEALTHY AT THIS TIME. TELE MONITOR IN PLACE. VOIDING YELLOW URINE IN URINAL. CALL LIGHT IN REACH. WILL CON TO MONITOR.
--- NOTE | 2019-01-10 | NUR ---
PATIENT IS STILL AWAKE WATCHING BOXING ON TV- STILL WITH PATIENT. PATIENT IS STILL RESTLESS AND SLIGHTLY AGITATED. IV AZITHRO INFUSING ORDERED. PATIENT WITH PRODUCTIVE BLOODY SPUTUM. ATTEMPTING TO CALM PATIENT AND RETURNED TO RECLINER FOR NOW. STATES THAT HE GETS LIKE THIS IN THE HOSPITAL-VERY ANXIOUS. SAFETY PRECAUTIONS REINFORCED WITH AND PATIENT. CALL LIGHT IN REACH. WILL CONT TO MONITOR.
[2019-01-10 03:40] VITALS: BP 102/63
--- NOTE | 2019-01-10 04:24 | NUR ---
PATIENT SAFETY ALARM IS GOING OFF-RESPONDED TO ROOM TO FIND PATIENT UP IN ROOM AND WATER PITCHER SPILLED OVER BEDSIDE TABLE AND FLOOR. IS AWAKE AND TRYING TO ASSIST PATIENT. PATIENT CONFUSED AND RESTLESS-HAS NOT SLEPT TONIGHT. SPILL CLEANED UP PATIENT BACK TO THE RECLINER. ALARM BACK IN PLACE. IV SITE TO RIGHT AC INTACT AND APPEARS HEALTHY AT THIS TIME. TELE MONITOR IN PLACE. SAFETY PRECAUTIONS REINFORCED WITH PATIENT AND . CALL LIGHT IN REACH. WILL CONT TO MONITOR.
--- NOTE | 2019-01-10 07:32 | NUR ---
PT APPEARS CONFUSED, ROAMING IN ROOM, WILL NOT LISTEN; PULLED IV OUT, CATH INTACT; OUTBOARD TECHNICIAN & AT BEDSIDE;
--- NOTE | 2019-01-10 09:35 | NUR ---
PT SITTING UP IN CHAIR, DRESSED IN STREET CLOTHING; FAMILY AT BEDSIDE ALONG WITH GRAND CHILD; PT SEEMS RELAX WITH GRAND BABY; TOLERATED AM MEDS WELL; SUGGEST GIVEN PT TYLENOL AND TO HOLD NEW IV FOR NOW; HOPING TO GO HOME. WILL CONTINUE TO MONITOR.
[2019-01-10 11:19] VITALS: BP 103/65
--- NOTE | 2019-01-10 11:19 | NUR ---
PT'S STATED PT'S HAVING CP, VITALS STABLE; PT SITTING DOWN IN RECLINER; NO S/S OF DISTRESS NOTED; WILL CONTINUE TO MONITOR.
--- NOTE | 2019-01-10 12:17 | NUR ---
PT SITTING UP IN RECLINER EATING LUNCH WITH ; VOICE NO CONCERNS AT THE TIME; NO S/S OF DISTRESS NOTED;
--- NOTE | 2019-01-10 13:09 | NUR ---
PT'S WANTS ME TO HOLD OFF STARTING NEW IV SITE EVEN THOUGH THERE'S IV MEDICATION PAST DUE. SHE'S WAITING FOR THE DR. PT SEEMS LESS ANXIOUS, PRESENTLY WATCHING TV IN THE RECLINER.
--- NOTE | 2019-01-10 13:45 | NUR ---
DR TIMMONS AT BEDSIDE TO DISCUSS POC
[2019-01-10 14:55] VITALS: BP 118/73
[2019-01-10] MEDS ORDERED: DOXYCYCL HYC100 MG PO (15:10)
--- NOTE | 2019-01-10 15:32 | NUR ---
PT AMBULATORY IN ROOM, AT BEDSIDE; DC INSTRUCTIONS GIVEN TO , VERBALIZING UNDERSTANDING; WAITING ON RIDE. WILL PUSH RED BUTTON WHEN RIDE GETS HERE.
--- NOTE | 2019-01-10 15:58 | NUR ---
Discharge instructions given. Patient verbalizes understanding of same. Discharged in stable condition via Wheelchair to Home with spouse. All belongings sent with pt.
--- NOTE | 2019-01-10 18:23 | NUR ---
PT'S CALLED WILL SEND GRAND DAUGHTER TO [facility] ([facility])
== END 2019-01-10 15:58 | disposition home health service (06) | DRG 190 ==
LOC: ED 22:31 → ED-I 01-09 00:50 → ED 01-09 01:02 → MS2 01-09 01:13
PROVIDERS: Family Medicine; ADMIT Internal Medicine; ATTEND Internal Medicine
DX: J44.1 Chronic obstructive pulmonary disease with (acute) exacerbation (principal); J18.9 Pneumonia, unspecified organism; R04.2 Hemoptysis; I13.0 Hypertensive heart and chronic kidney disease with heart failure and stage 1 through stage 4 chronic kidney disease, or unspecified chronic kidney disease; C34.31 Malignant neoplasm of lower lobe, right bronchus or lung; I50.9 Heart failure, unspecified; N18.3 Chronic kidney disease, stage 3 (moderate); J44.0 Chronic obstructive pulmonary disease with (acute) lower respiratory infection; E78.5 Hyperlipidemia, unspecified; I25.10 Atherosclerotic heart disease of native coronary artery without angina pectoris; I25.5 Ischemic cardiomyopathy; I69.919 Unspecified symptoms and signs involving cognitive functions following unspecified cerebrovascular disease; F01.50 Vascular dementia, unspecified severity, without behavioral disturbance, psychotic disturbance, mood disturbance, and anxiety; I69.920 Aphasia following unspecified cerebrovascular disease; R09.02 Hypoxemia; E86.0 Dehydration; F17.200 Nicotine dependence, unspecified, uncomplicated; I25.2 Old myocardial infarction; Z86.74 Personal history of sudden cardiac arrest; Z86.711 Personal history of pulmonary embolism; Z87.01 Personal history of pneumonia (recurrent); Z95.0 Presence of cardiac pacemaker; Z79.02 Long term (current) use of antithrombotics/antiplatelets; Z95.5 Presence of coronary angioplasty implant and graft
CPT/HCPCS: J0692

== ENCOUNTER 2019-04-26 12:59 | Inpatient (IN) | payer MEDICARE ==
[~2019-04-26] VITALS: Ht 175.3 cm; Wt 88.0 kg
[~2019-04-26 12:59] MED LIST changes: +EPLERENONE25 MG PO; +PRADAXA150 MG PO; +TRELEGY ELLIPTA1 AER IN; +TYLENOL500 MG PO
[2019-04-26 13:35] LABS: HEMATOCRIT 36.7 % (39.0-50.0); HEMOGLOBIN 11.2 g/dl (14.0-18.0); IMMATURE GRANULOCYTES 0.3 % (0.0-5.0); MEAN CELL VOLUME 94.8 fL CALC (80.0-100.0); MEAN CORPUSCULAR HGB 28.9 pG CALC (26.0-32.0); MEAN CORPUSCULAR HGB CONC 30.5 g/L CALC (32.0-36.0); NEUT# 5.32 thou/uL (1.82-7.42); RED BLOOD COUNT 3.87 mill/uL (4.70-6.10); RED CELL DISTRI WIDTH 16.7 % (11.5-15.5)
[2019-04-26 13:51] LABS: CREATININE 1.4 mg/dL (0.7-1.3); POTASSIUM 3.9 mmol/l (3.5-5.1)
[2019-04-26] MEDS ORDERED: TRAZODONE50 MG PO (14:13)
[2019-04-26 16:37] VITALS: BP 119/76
[2019-04-26 19:22] VITALS: BP 108/67
[2019-04-26 23:53] VITALS: BP 90/60
[2019-04-27 05:10] VITALS: BP 106/63
[2019-04-27 05:39] LABS: URINE BILIRUBIN - DIPSTICK NEGATIVE (NEGATIVE); URINE BLOOD DIPSTICK NEGATIVE (NEGATIVE); URINE COLOR YELLOW; URINE GLUCOSE - DIPSTICK NEGATIVE (NEGATIVE); URINE KETONE NEGATIVE (NEGATIVE); URINE LEUK ESTERASE NEGATIVE (Negative); URINE NITRITE - DIPSTICK NEGATIVE (Negative); URINE PH 6.5 (4.5-8.0); URINE PROTEIN - DIPSTICK NEGATIVE (NEG-TRACE); URINE UROBILINOGEN - DIPSTICK 0.2 E.U./dL (0.2)
[2019-04-27 05:44] LABS: HEMATOCRIT 39.8 % (39.0-50.0); HEMOGLOBIN 11.9 g/dl (14.0-18.0); MEAN CELL VOLUME 93.9 fL CALC (80.0-100.0); MEAN CORPUSCULAR HGB 28.1 pG CALC (26.0-32.0); MEAN CORPUSCULAR HGB CONC 29.9 g/L CALC (32.0-36.0); RED BLOOD COUNT 4.24 mill/uL (4.70-6.10); RED CELL DISTRI WIDTH 16.7 % (11.5-15.5)
[2019-04-27 05:55] LABS: URINE CLARITY CLEAR
[2019-04-27 06:04] LABS: CREATININE 1.4 mg/dL (0.7-1.3); POTASSIUM 3.5 mmol/l (3.5-5.1)
[2019-04-27 15:24] VITALS: BP 95/64
[2019-04-27] MEDS ORDERED: BUMEX1 M1 PO (17:41)
[2019-04-27] MEDS ORDERED: MEDDOSEPAK PO (17:44)
[2019-04-27] MEDS ORDERED: DOXYCYCL HYC100 MG PO (17:44)
== END 2019-04-27 18:33 | disposition home health service (06) | DRG 291 ==
LOC: ED 12:59 → ED-I 14:11 → ED 14:32 → MS2 14:33
PROVIDERS: Family Medicine; Internal Medicine; ADMIT Internal Medicine; ATTEND Internal Medicine
DX: I13.0 Hypertensive heart and chronic kidney disease with heart failure and stage 1 through stage 4 chronic kidney disease, or unspecified chronic kidney disease (principal); I50.23 Acute on chronic systolic (congestive) heart failure; G93.1 Anoxic brain damage, not elsewhere classified; J44.1 Chronic obstructive pulmonary disease with (acute) exacerbation; N17.9 Acute kidney failure, unspecified; N18.3 Chronic kidney disease, stage 3 (moderate); I25.10 Atherosclerotic heart disease of native coronary artery without angina pectoris; I48.0 Paroxysmal atrial fibrillation; I25.5 Ischemic cardiomyopathy; I25.2 Old myocardial infarction; R91.8 Other nonspecific abnormal finding of lung field; R21 Rash and other nonspecific skin eruption; F17.200 Nicotine dependence, unspecified, uncomplicated; Z95.5 Presence of coronary angioplasty implant and graft; Z86.74 Personal history of sudden cardiac arrest; Z86.73 Personal history of transient ischemic attack (TIA), and cerebral infarction without residual deficits; Z95.0 Presence of cardiac pacemaker